=== PATIENT | male | born 1930 | race Caucasian/White ===

== ENCOUNTER 2018-03-07 14:31 | Emergency (ER) | payer OTHER, MEDICARE ==
--- NOTE | 2018-03-07 14:56 | PDOC ---
Rapid Medical Evaluation Chief Complaint: Injury Time Seen by Provider: 03/07/18 14:50 Medical Evaluation: 03/07/18 14:53 I performed a brief in person evaluation. CC: Injury HPI: Pt is a 87 YO male who is on blood thinners who states he was at the gym and accidentally fell off of an exercise ball onto his face/head and right forearm. Pt denies LOC. Pt's tetanus has been greater than 5 years. PE: Skin: 1 cm horizontal lac to nasal bridge and hematoma to right forearm. Lungs: Clear Heart: RRR MS: Moves all extremities without difficulty. No pain upon palpation to the right forearm or facial bones. Neuro: Alert Psych: Appropriate affect Pt will go to main ED further evaluation. Discharge Disposition - Diagnosis Laceration - Referrals - Patient Instructions - Post Discharge Activity
[2018-03-07 14:57] VITALS: BP 131/63; PULSE 75; TEMP 98.3; BMI 22.3
--- NOTE | 2018-03-07 15:31 | PDOC ---
History of Present Illness - General Chief Complaint: Injury Stated Complaint: INJURY Time Seen by Provider: 03/07/18 14:50 History Source: Patient Exam Limitations: No Limitations - History of Present Illness Initial Comments: 87 year old man on anti-coagulants who presents after falling off an exercise ball onto his face and R forearm and now with a laceration to the nasal bridge and with hematoma to the R forearm, and with a small laceration to the occipital aspect of head. The patient reports that when he fell it happened so fast but he did not pass out and was able to sit up immediately after. The patient denies changes in vision, hearing, headache, chest pain, abdominal pain , or pain or abrasions on any other part of the body. The patient has not had a tetanus within the last 5 years. Meds: memantine, donepezil, methimazole, simvastatin, plavix Past History - Past Medical History Allergies/Adverse Reactions: Allergies Allergy/AdvReac Type Severity Reaction Status Date / Time No Known Allergies Allergy Verified 03/07/18 14:57 Cancer: No COPD: No Dementia: No Other medical history: stroke -2011 - Immunization History Immunization Up to Date: No - Suicide/Smoking/Psychosocial Hx Smoking History: Never smoked Have you smoked in the past 12 months: No Information on smoking cessation initiated: No Hx Alcohol Use: No Drug/Substance Use Hx: No Review of Systems - Review of Systems Able to Perform ROS?: Yes Is the patient limited Niuean proficient: No Constitutional: No: Chills, Diaphoresis, Fever HEENTM: No: Eye Pain, Blurred Vision, Tinnitus Respiratory: No: Cough, Orthopnea, Shortness of Breath Cardiac (ROS): No: Chest Pain, Lightheadedness, Palpitations ABD/GI: No: Constipated, Diarrhea, Nausea, Vomiting : No: Burning, Dysuria, Flank Pain Musculoskeletal: No: Back Pain, Joint Pain Neurological: No: Headache, Numbness, Tingling Hematologic/Lymphatic: No: Anemia, Blood Clots, Easy Bleeding, Easy Bruising, Bleeding Diathesis *Physical Exam - Vital Signs Last Vital Signs Temp Pulse Resp BP Pulse Ox 98.3 F 75 16 131/63 100 03/07/18 14:53 03/07/18 14:53 03/07/18 14:53 03/07/18 14:53 03/07/18 14:53 - Physical Exam Comments: 03/07/18 16:39 GENERAL: Awake, alert, and fully oriented, in no acute distress HEAD: normocephalic, .5cm laceration to the R lateral corner of orbit, 1cm laceration to the nasal bridge, small scabbed over lesion on the occipital aspect of head EYES: PERRLA, EOMI, sclera anicteric, conjunctiva clear ENT: oropharynx clear without exudates. Moist mucosa NECK: Normal ROM, supple LUNGS: No distress, speaks full sentences, clear to auscultation bilaterally HEART: Regular rate and rhythm, normal S1 and S2, no murmurs, rubs or gallops, peripheral pulses normal and equal bilaterally. ABDOMEN: Soft, nontender, normoactive bowel sounds. No guarding, no rebound. No masses EXTREMITIES : Normal inspection, Normal range of motion, no edema. No clubbing or cyanosis. R forearm 5cm diameter hematoma and with 1cm length abrasion NEUROLOGICAL: Cranial nerves II through XII grossly intact. Normal speech, no focal sensorimotor deficits Moderate Sedation - Procedure Monitoring Vital Signs: Procedure Monitoring Vital Signs Temperature 98.3 F 03/07/18 14:53 Pulse Rate 75 03/07/18 14:53 Respiratory Rate 16 03/07/18 14:53 Blood Pressure 131/63 03/07/18 14:53 O2 Sat by Pulse Oximetry (%) 100 03/07/18 14:53 Medical Decision Making - Medical Decision Making 87 year old man on anti-coagulants who presents after falling off an exercise ball onto his face and R forearm and now with a laceration to the nasal bridge and with hematoma to the R forearm, and with a small laceration to the occipital aspect of head. The patient reports that when he fell it happened so fast but he did not pass out and was able to sit up immediately after. ED Course: consider fracture vs intracranial bleed vs abrasion 03/07/18 16:46 CT: chronic nasal bone fracture, small amount of fluid in mastoid air cells, otherwise unremarkable. 03/07/18 17:58 wounds repairs with dermabond and steri-strip R arm heamtoma with telfa and laura wrap Patient stable for discharge, given return precautions and return precautions. *DC/Admit/Observation/Transfer Diagnosis at time of Disposition: Laceration - Discharge Dispostion Disposition: HOME Condition at time of disposition: Stable - Referrals Referrals: Humberto Stanton MD [Primary Care Provider] - - Patient Instructions Printed Discharge Instructions: How to Prevent Falls Additional Instructions: You were seen in the ED for complaints of of laceration to the face and abrasion and hematom to the right arm. In the ED you were evaluated with imaging. Your results were unremarkable. There does not appear to be an acute need for immediate hospitalization. You are advised to follow up with your Primary Care Physician within 1 week. Take over the counter Motrin and Tylenol for pain relief. Keep wounds dry for 24 hours and avoid scented lotions or soaps. Return to the ED immediately if you experience worsening pain in the face, head , abdomen, chest or back. - Post Discharge Activity
[2018-03-07] MEDS ORDERED: DIPHTH,PERTUSS(ACELL),TET 0.5 ML DISP.SYRIN IM ONE (16:33)
--- NOTE | 2018-03-07 17:53 | PDOC ---
Attending Attestation - Resident Resident Name: Kenisha Bourgeois - ED Attending Attestation I have performed the following: I have examined & evaluated the patient, The case was reviewed & discussed with the resident, I agree w/resident's findings & plan, Exceptions are as noted - HPI HPI: 03/07/18 17:46 87 yo male p/w lacerations and rt forearm hematoma after falling off his exercise ball - Physicial Exam PE: 03/07/18 17:55 thin ,alert 87 yo male p/e abrasions and hematomas after falling off the ( exercise ball) [employer] and hitting his rt forearm,back of his head and nose head -there is an occipital abrasion on his scalp adjacent to the lateral side of his rt eye is a 5 mm laceration nares : there is a 1 cm laceration on his nasal bridge No mandibular tenderness , reproducible occlusion, no trimus no dental fractures neck - no midline cervical tenderness ears_ no hemotympanum lungs cta b/l cvs [id number] abd flat,nontender extremities there is a large hematoma 8 cm x 3 cm on the volar surface of his rt forearm with an abrasion no hip or leg pain neuro axox3, ambulatory,moving all extremities psych appropriate - Medical Decision Making 03/07/18 18:05 ct scan head no acute intracranial pathology 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 The rt forearm was cleaned ,bacitracin applied ,bandaged -pt never had any LOC,he denies headache ,negative imaging studies pt is with his family and will be discharged home with his sone -
== END 2018-03-07 18:30 | disposition home or self-care (01) ==
LOC: JER 14:31
PROC: 3E0234Z Introduction of Serum, Toxoid and Vaccine into Muscle, Percutaneous Approach (ICD-10-PCS; principal; 2018-03-07)
DX: S01.21XA Laceration without foreign body of nose, initial encounter (principal); S05.41XA Penetrating wound of orbit with or without foreign body, right eye, initial encounter; S51.811A Laceration without foreign body of right forearm, initial encounter; S50.11XA Contusion of right forearm, initial encounter; W17.89XA Other fall from one level to another, initial encounter; Y93.B9 Activity, other involving muscle strengthening exercises; Y92.39 Other specified sports and athletic area as the place of occurrence of the external cause; Y99.8 Other external cause status; Z86.73 Personal history of transient ischemic attack (TIA), and cerebral infarction without residual deficits; Z79.01 Long term (current) use of anticoagulants
CPT/HCPCS: 70450-TC; 70486-TC; 90471; 90715; 99281-25